=== PATIENT | female | born 1995 | race Caucasian/White ===

== ENCOUNTER 2017-09-22 09:49 | Emergency (ER) | payer BC, OTHER ==
[~2017-09-22] VITALS: Ht 165.1 cm; Wt 100.0 kg
[2017-09-22 09:54] VITALS: TEMP 98.9
[2017-09-22 10:45] VITALS: BP 156/95; PULSE 89
== END 2017-09-22 10:46 | disposition home or self-care (01) ==
LOC: COL.ER 09:49
DX: L02.31 Cutaneous abscess of buttock (principal); E10.9 Type 1 diabetes mellitus without complications